=== PATIENT | female | born 1950 | race Caucasian/White ===

== ENCOUNTER 2017-12-05 09:56 | Observation (INO) | payer OTHER ==
[~2017-12-05] VITALS: Ht 160 cm; Wt 83.5 kg
[2017-12-05] MEDS ORDERED: ONDANSETRON HCL MDV 20ML 2 MG/ML VIAL ONE (10:04)
[2017-12-05 10:14] LABS: EOSINOPHILS % (AUTO) 1.5 % (0.0-8.0); HEMATOCRIT 40.1 % (36-48); LYMPHOCYTES % (AUTO) 23.9 % (21.0-51.0); MEAN CORPUSCULAR HEMOGLOBIN 32.6 pg (27.0-33.0); MEAN CORPUSCULAR HGB CONC 34.6 g/dL (32.0-36.0); MONOCYTES % (AUTO) 8.3 % (3.0-13.0); NEUTROPHILS % (AUTO) 65.3 % (40.0-77.0); PLATELET COUNT (AUTO) 240 K/uL (130-400); RED BLOOD CELL COUNT(AUTO) 4.27 MIL/uL (4.00-5.50); WHITE BLOOD COUNT (AUTO) 7.9 K/uL (4.8-10.8)
[2017-12-05] MEDS ORDERED: SODIUM CHLORIDE 0.9% 1000ML 1,000 ML IV ONE (10:14)
[2017-12-05 10:25] LABS: CREATININE 0.8 mg/dL (0.5-1.5); POTASSIUM 3.6 mmol/L (3.5-5.1)
[2017-12-05 10:30] LABS: ALBUMIN 3.9 g/dL (3.5-5.0); BILIRUBIN,TOTAL 0.6 mg/dL (0.2-1.0); TOTAL PROTEIN, SERUM 7.6 g/dL (6.0-8.3)
[2017-12-05] MEDS ORDERED: ASPIRIN 325 MG TABLET ONE (13:58)
[2017-12-05] MEDS ORDERED: ACETAMINOPHEN 325 MG TAB PO PRN ×2 (14:15→22:15)
[2017-12-05] MEDS ORDERED: HYDRALAZINE HCL 20 MG/ML VIAL IV PRN (14:15)
[2017-12-05] MEDS ORDERED: ONDANSETRON HCL 4 MG/2 ML VIAL IVP PRN (14:15)
[2017-12-05 20:38] VITALS: BP 134/58
[2017-12-05] MEDS ORDERED: LIDOCAINE HCL-MPF 1% 2ML VIAL IVP PRN ×2 (22:15)
[2017-12-05] MEDS ORDERED: MORPHINE SULFATE 2 MG/ML 1ML SYG IVP PRN (22:15)
[2017-12-05] MEDS ORDERED: POTASSIUM CHLORIDE 10% ELIXIR 20 MEQ/15 ML UDCUP PO PRN ×2 (22:15)
[2017-12-05] MEDS ORDERED: POTASSIUM CHLORIDE 20 MEQ ERTAB PO PRN (22:15)
[2017-12-05] MEDS ORDERED: POTASSIUM CHLORIDE 20MEQ/100ML 100 ML IV PRN ×2 (22:15)
[2017-12-05 23:42] VITALS: BP 109/61
[2017-12-06] MEDS ORDERED: SIMV20TA6 PO (02:16)
[2017-12-06 03:48] LABS: BASOPHILS % (AUTO) 0.8 % (0.0-5.0); EOSINOPHILS % (AUTO) 0.8 % (0.0-8.0); HEMATOCRIT 36.9 % (36-48); LYMPHOCYTES % (AUTO) 23.7 % (21.0-51.0); MEAN CORPUSCULAR HEMOGLOBIN 32.6 pg (27.0-33.0); MEAN CORPUSCULAR HGB CONC 34.8 g/dL (32.0-36.0); MEAN CORPUSCULAR VOLUME 93.9 fL (79-99); MONOCYTES % (AUTO) 7.5 % (3.0-13.0); NEUTROPHILS % (AUTO) 67.2 % (40.0-77.0); PLATELET COUNT (AUTO) 219 K/uL (130-400); RED BLOOD CELL COUNT(AUTO) 3.93 MIL/uL (4.00-5.50); RED CELL DISTRIBUTION WIDTH 12.9 % (11.0-15.5); WHITE BLOOD COUNT (AUTO) 7.3 K/uL (4.8-10.8)
[2017-12-06 04:04] LABS: CREATININE 0.8 mg/dL (0.5-1.5); POTASSIUM 3.6 mmol/L (3.5-5.1)
[2017-12-06 04:07] VITALS: BP 130/73
[2017-12-06 04:10] LABS: HEMOGLOBIN A1C 5.5 % (4.0-6.0)
[2017-12-06 07:28] VITALS: BP 132/72
[2017-12-06] MEDS ORDERED: ENOXAPARIN SODIUM 40 MG/0.4 ML SYRINGE SQ SCH (09:00)
[2017-12-06] MEDS ORDERED: FAMOTIDINE 20MG TAB 20 MG TAB PO SCH (09:00)
[2017-12-06 11:17] VITALS: BP 160/85
[2017-12-06] MEDS ORDERED: ASPIRIN 81MG TAB.CHEW PO SCH (12:00)
[2017-12-06 15:12] VITALS: BP 154/82
[2017-12-06 16:00] VITALS: BP 145/83
[2017-12-06 19:00] VITALS: BP 134/63
[2017-12-06] MEDS ORDERED: ATORVASTATIN CALCIUM 40 MG TABLET PO SCH (21:00)
[2017-12-07] VITALS: BP 130/71
[2017-12-07 04:00] VITALS: BP 113/66
[2017-12-07 05:28] LABS: BASOPHILS % (AUTO) 0.6 % (0.0-5.0); EOSINOPHILS % (AUTO) 1.1 % (0.0-8.0); HEMATOCRIT 37.7 % (36-48); LYMPHOCYTES % (AUTO) 22.6 % (21.0-51.0); MEAN CORPUSCULAR HEMOGLOBIN 33.4 pg (27.0-33.0); MEAN CORPUSCULAR HGB CONC 35.9 g/dL (32.0-36.0); MEAN CORPUSCULAR VOLUME 93.2 fL (79-99); MONOCYTES % (AUTO) 8.6 % (3.0-13.0); NEUTROPHILS % (AUTO) 67.1 % (40.0-77.0); PLATELET COUNT (AUTO) 226 K/uL (130-400); RED BLOOD CELL COUNT(AUTO) 4.05 MIL/uL (4.00-5.50); RED CELL DISTRIBUTION WIDTH 12.6 % (11.0-15.5); WHITE BLOOD COUNT (AUTO) 7.5 K/uL (4.8-10.8)
[2017-12-07 05:47] LABS: CREATININE 0.9 mg/dL (0.5-1.5); POTASSIUM 3.2 mmol/L (3.5-5.1)
[2017-12-07] MEDS ORDERED: REGADENOSON 0.4 MG/5 ML PF SYG IVP SCH (07:15)
[2017-12-07 08:00] VITALS: BP 134/64
[2017-12-07 11:00] VITALS: BP 143/63
[2017-12-07 16:00] VITALS: BP 138/74
== END 2017-12-07 17:50 | disposition home or self-care (01) ==
LOC: EDH 09:56 → EDHIP 13:50 → 2AH 20:23 → 3AH 12-06 14:48
PROVIDERS: ADMIT Internal Medicine Nephrology; ATTEND Internal Medicine Nephrology
DX: R07.89 Other chest pain (principal); E78.5 Hyperlipidemia, unspecified; R11.2 Nausea with vomiting, unspecified; E66.9 Obesity, unspecified; K21.9 Gastro-esophageal reflux disease without esophagitis; Z90.710 Acquired absence of both cervix and uterus; Z90.49 Acquired absence of other specified parts of digestive tract; Z79.899 Other long term (current) drug therapy; Z80.3 Family history of malignant neoplasm of breast; Z80.49 Family history of malignant neoplasm of other genital organs; Z82.49 Family history of ischemic heart disease and other diseases of the circulatory system; Z83.3 Family history of diabetes mellitus
CPT/HCPCS: 36415 ×3; 71045; 74176; 80048 ×2; 80053; 80061; 82550; 82553; 83036; 83690; 84484 ×2; 85025 ×3; 93005 ×2; 93306; 96361; 96372; 96374; 99285; A4510; G0378 ×52; J1650; J2785; J3480; J3490; J7030

== ENCOUNTER → 2018-09-30 | Outpatient (CLI) | payer OTHER ==
[~2018-09-30] MED LIST: SIMV20TA6 PO
== END | disposition home or self-care (01) ==
LOC: RAH 12:28
PROVIDERS: ATTEND Internal Medicine
DX: I73.9 Peripheral vascular disease, unspecified (principal)
CPT/HCPCS: 93925

== ENCOUNTER 2020-06-24 13:08 | Emergency (ER) | payer OTHER ==
[~2020-06-24 13:08] MED LIST changes: +SIMV-43 PO; -SIMV20TA6 PO
[2020-06-24 13:34] LABS: BASOPHILS % (AUTO) 0.3 % (0.0-5.0); EOSINOPHILS % (AUTO) 2.2 % (0.0-8.0); HEMATOCRIT 38.6 % (36-48); LYMPHOCYTES % (AUTO) 14.6 % (21.0-51.0); MEAN CORPUSCULAR HEMOGLOBIN 31.8 pg (27.0-33.0); MEAN CORPUSCULAR HGB CONC 33.9 g/dL (32.0-36.0); MEAN CORPUSCULAR VOLUME 93.7 fL (79-99); MONOCYTES % (AUTO) 8.5 % (3.0-13.0); NEUTROPHILS % (AUTO) 74.2 % (40.0-77.0); PLATELET COUNT (AUTO) 217 K/uL (130-400); RED BLOOD CELL COUNT(AUTO) 4.12 MIL/uL (4.00-5.50); RED CELL DISTRIBUTION WIDTH 12.6 % (11.0-15.5)
[2020-06-24] MEDS ORDERED: METOCLOPRAMIDE 10 MG/2 ML VIAL ONE (13:39)
[2020-06-24] MEDS ORDERED: DiphenhydrAMINE HCL 50 MG/ML VIAL ONE (13:40)
[2020-06-24 13:45] LABS: CREATININE 0.9 mg/dL (0.5-1.5); POTASSIUM 3.4 mmol/L (3.5-5.1)
[2020-06-24 13:49] LABS: ALBUMIN 3.7 g/dL (3.5-5.0); BILIRUBIN,TOTAL 0.5 mg/dL (0.2-1.0); TOTAL PROTEIN, SERUM 7.2 g/dL (6.0-8.3)
== END 2020-06-24 17:27 | disposition home or self-care (01) ==
LOC: EDH 13:08
DX: U07.1 COVID-19 (principal); R07.89 Other chest pain; R11.2 Nausea with vomiting, unspecified; E78.5 Hyperlipidemia, unspecified; I10 Essential (primary) hypertension; K21.9 Gastro-esophageal reflux disease without esophagitis
CPT/HCPCS: 36415; 71045; 80053; 83605; 83690; 84484 ×2; 85025; 87040 ×2; 87426; 87804 ×2; 93005; 96374; 96375; 99285; J1200; J2765